=== PATIENT | male | born 1975 | race Caucasian/White ===

== ENCOUNTER 2018-04-16 12:35 | Inpatient (IN) | payer SELFPAY, OTHER | END 2018-04-20 20:15 | disposition home or self-care (01) | LOC: ED 12:35 → DU 16:17 → ED 12:35 → DU 16:17 → ED 12:35 → DU 16:17 | DX: I21.A1 Myocardial infarction type 2 (principal); E43 Unspecified severe protein-calorie malnutrition; J96.22 Acute and chronic respiratory failure with hypercapnia; J96.21 Acute and chronic respiratory failure with hypoxia; E66.2 Morbid (severe) obesity with alveolar hypoventilation; I50.40 Unspecified combined systolic (congestive) and diastolic (congestive) heart failure; E78.00 Pure hypercholesterolemia, unspecified; E83.51 Hypocalcemia; J11.1 Influenza due to unidentified influenza virus with other respiratory manifestations; Z68.44 Body mass index [BMI] 60.0-69.9, adult; Z83.3 Family history of diabetes mellitus ==